=== PATIENT | female | born 1975 | race Caucasian/White ===

== ENCOUNTER 2016-10-19 12:21 | Emergency (ER) | payer OTHER ==
[~2016-10-19] VITALS: Ht 157.5 cm; Wt 95.0 kg
[~2016-10-19 12:21] MED LIST: AUGM875T PO; BUSP10TA PO; IBUP800T23 PO; LEVO.075 PO; ZOLO50TA PO
[2016-10-19 12:24] VITALS: BP 147/68; PULSE 78; RESP 17; TEMP 98; O2SAT 96
--- NOTE | 2016-10-19 12:36 | PD ---
HPI Chief Complaint: Cold / Flu Symptoms Time Seen by Provider: 12:28 Travel History International Travel<30 days: No Contact w/Intl Traveler<30days: No Traveled to known affect area: No History of Present Illness HPI 40-year-old female who reports a history of lupus, hypothyroidism, depression and mild asthma. She presents here for evaluation of cough, congestion, sore throat. Symptoms started 1 week ago. The cough is productive with green sputum production. She does also endorse some wheezing, particularly at night. She is not using any medication for symptom relief. No recent travel, no recent sick contacts. No fevers or chills. She has no other complaints at this time. PFSH Past Medical History Autoimmune Disease: Yes (LUPUS) Heart Rhythm Problems: No Cancer: No Cardiac Catheterization: No Cardiovascular Problems: Yes (HEART MURMUR) High Cholesterol: No Congestive Heart Failure: No Diabetes: No Diminished Hearing: No Endocrine: Yes GERD: Yes Genitourinary: No Hepatitis: No Hiatal Hernia: No Hypertension: No Immune Disorder: Yes (LUPUS) Musculoskeletal: Yes (HX OF COSTOCHONDRITIS) Neurologic: No Psychiatric: Yes (ANXIETY AND PANIC ATTACKS. NO MEDS USED) Reproductive: No Respiratory: Yes (HX OF ASTHMA) Immunizations Current: Yes Thyroid Disease: Yes (HYPOTHYROID) ?: Not LMP: 09/2016 Past Surgical History Abdominal Surgery: Yes (C- SECTION X 2;) Body Medical Devices: N/A Cardiac Surgery: No Section: Yes (X2) Coronary Artery Bypass Graft: No Ear Surgery: No Endocrine Surgery: No Eye Surgery: No Genitourinary Surgery: No Gynecologic Surgery: Yes ( X2) Joint Replacement: No Oral Surgery: Yes (CROWNS) Pacemaker: No Thoracic Surgery: No Social History Alcohol Use: Yes (SOCIALLY) Tobacco Use: No Substance Use: No Allergies-Medications (Allergen,Severity, Reaction): Coded Allergies: Penicillin (Verified Allergy, Severe, RASH, 10/19/16) Reported Meds & Prescriptions Reported Meds & Active Scripts Active Tessalon Perles (Benzonatate) 100 Mg Cap 100 Mg PO TID PRN Proair Hfa 8.5 GM Inh (Albuterol Sulfate) 90 Mcg/Act Aer 2 Puff INH Q4-6H PRN 108 mcg/actuation Prednisone 20 Mg Tab 20 Mg PO BID 5 Days Buspirone (Buspirone HCl) 10 Mg Tab 20 Mg PO BID Zoloft (Sertraline HCl) 50 Mg Tab 50 Mg PO DAILY Augmentin (Amoxicillin-Clavulanate) 875-125 mg Tab 875 Mg PO BID not for use in CrCl <30 ml/min. Reported Synthroid (Levothyroxine Sodium) 75 Mcg Tab 75 Mcg PO DAILY Ibuprofen 800 Mg Tab 800 Mg PO TID Review of Systems Except as stated in HPI: all other systems reviewed are Neg Physical Exam Narrative GENERAL: Well-developed well-nourished female in no acute distress SKIN: Warm and dry. HEAD: Atraumatic. Normocephalic. EYES: Pupils equal and round. No scleral icterus. No injection or drainage. ENT: No nasal bleeding or discharge. Mucous membranes pink and moist. No oropharyngeal erythema or exudate. Tympanic membranes revealed normal anatomical landmarks without erythema or air fluid level. NECK: Trachea midline. No JVD. No lymphadenopathy. CARDIOVASCULAR: Regular rate and rhythm. No murmur appreciated. RESPIRATORY: No accessory muscle use. Clear to auscultation. Breath sounds equal bilaterally. No crackles no wheezing or rhonchi Data Data Last Documented VS Vital Signs Date Time Temp Pulse Resp B/P Pulse Ox O2 Delivery O2 Flow Rate FiO2 10/19/16 12:24 98.0 78 17 147/68 96 Orders Chest, Pa & Lat (10/19/16 ) [facility] Medical Decision Making Medical Screen Exam Complete: Yes Emergency Medical Condition: Yes Medical Record Reviewed: Yes Differential Diagnosis Bronchitis, sinusitis, pneumonia, influenza, reactive airway disease, asthma exacerbation Narrative Course 40-year-old female with 1 week of cough, congestion, sore throat, wheezing at night. Physical examination currently is reassuring. She has no fever, tachycardia, tachypnea, hypoxia, wheezing on examination. She appears well. She is concerned that she may have pneumonia which she has had in the past. Therefore Plan is for chest x-ray. Chest x-ray is negative for pneumonia. The patient appears to have a viral bronchitis. She will be treated with bronchodilators, prednisone, Tessalon. Diagnosis Primary Impression: Bronchitis Additional Instructions: Medication as prescribed. Cover mouth when coughing. Stay well hydrated and well-nourished. Return for any emergent medical conditions. Med/Other Pt SpecificInfo: Prescription(s) given Scripts Benzonatate (Tessalon Perles)100 Mg [id number] Mg PO TID PRN (COUGH) #30 CAP Ref 0 Prov:Umair Zavala MD 10/19/16 Albuterol 8.5 GM Inh (Proair Hfa 8.5 GM Inh)90 Mcg/Act Aer2 Puff INH Q4-6H PRN ( SHORTNESS OF BREATH) #1 INHALER Ref 0 108 mcg/actuation Prov:Umair Zavala MD 10/19/16 Prednisone 20 Mg Tab20 Mg PO BID 5 Days Ref 0 Prov:Umair Zavala MD 10/19/16 Disposition: 01 DISCHARGE HOME Condition: Stable Clement Crespo Oct 19, 2016 12:36
[2016-10-19] MEDS ORDERED: ALBUAER3 INH (12:39)
[2016-10-19] MEDS ORDERED: PRED20 PO (12:39)
[2016-10-19] MEDS ORDERED: BENZ100 PO (12:39)
--- NOTE | 2016-10-19 13:08 | RADRPT ---
EXAM DATE/TIME: 10/19/2016 13:03 [facility] COMPARISON: CHEST PA & LAT, September 02, 2014, 12:19. INDICATIONS : Congestion, wheezing, short of breath. MEDICAL HISTORY : None. SURGICAL HISTORY : None. ENCOUNTER: Initial ACUITY: 1 week PAIN SCORE: 3/10 LOCATION: Bilateral chest FINDINGS: PA and lateral views of the chest demonstrate the lungs to be symmetrically aerated without evidence of mass, infiltrate or effusion. The cardiomediastinal contours are unremarkable. Osseous structure s are intact. CONCLUSION: Normal examination. Umair Pompa MD on October 19, 2016 at 13:07 Board Certified Radiologist. This report was verified electronically.
[2016-11-30] MEDS ORDERED: CURCPOW (17:09)
[2016-11-30] MEDS ORDERED: OMEG100010 (17:09)
[2016-11-30] MEDS ORDERED: CHOL50006 (17:09)
[2016-12-31] MEDS ORDERED: ZOLO50TA PO (11:15)
[2017-02-11] MEDS ORDERED: BUSP10TA PO (09:34)
== END 2016-10-19 13:11 | disposition home or self-care (01) ==
LOC: NETRI 12:21
DX: J40 Bronchitis, not specified as acute or chronic (principal); J02.9 Acute pharyngitis, unspecified; R06.2 Wheezing; M32.9 Systemic lupus erythematosus, unspecified
CPT/HCPCS: 71020; 99283

== ENCOUNTER 2016-12-14 20:43 | Emergency (ER) | payer BC, OTHER ==
[~2016-12-14] VITALS: Ht 170.2 cm; Wt 99.0 kg
[~2016-12-14 20:43] MED LIST changes: +ALBUAER3 INH; -AUGM875T PO; +CHOL50006; +CURCPOW; +OMEG100010
[2016-12-14 20:45] VITALS: BP 141/88; PULSE 74; RESP 16; TEMP 98.4; O2SAT 100
[2016-12-14] MEDS ORDERED: DICL75TA PO (21:06)
[2016-12-14] MEDS ORDERED: ROBA750T PO (21:06)
--- NOTE | 2016-12-14 21:12 | PD ---
HPI Chief Complaint: Back/ Neck Pain or Injury Time Seen by Provider: 21:07 Travel History International Travel<30 days: No Contact w/Intl Traveler<30days: No Traveled to known affect area: No History of Present Illness HPI 40-year-old white female presents to emergency Department with complaints of neck and upper back pain after a slip and fall at home. She states that this occurred a few days ago. She had tripped over her daughter's bed falling flat onto her back. She did not hit her head. There was no loss of consciousness. She denies any focal numbness, tingling or weakness. No acute bowel or bladder changes. She states that she's developed increasing stiffness and pain worse with movement of the head. She states the pain radiates from her base of her head down into her neck and upper back. She has some relief with remaining still but worse with activity. Denies any recent illness. Denies PFSH Past Medical History Narrative Medical Lupus, anxiety, depression, hypothyroidism Autoimmune Disease: Yes (LUPUS) Heart Rhythm Problems: No Cancer: No Cardiac Catheterization: No Cardiovascular Problems: Yes (HEART MURMUR) High Cholesterol: No Congestive Heart Failure: No Diabetes: No Diminished Hearing: No Endocrine: Yes GERD: Yes Genitourinary: No Hepatitis: No Hiatal Hernia: No Hypertension: No Immune Disorder: Yes (LUPUS) Musculoskeletal: Yes (HX OF COSTOCHONDRITIS) Neurologic: No Psychiatric: Yes (ANXIETY AND PANIC ATTACKS. NO MEDS USED) Reproductive: No Respiratory: Yes (HX OF ASTHMA) Immunizations Current: Yes Thyroid Disease: Yes (HYPOTHYROID) Past Surgical History Narrative Surgical C-sections, left carpal tunnel release Abdominal Surgery: Yes (C- SECTION X 2;) Body Medical Devices: N/A Cardiac Surgery: No Section: Yes (X2) Coronary Artery Bypass Graft: No Ear Surgery: No Endocrine Surgery: No Eye Surgery: No Genitourinary Surgery: No Gynecologic Surgery: Yes ( X2) Joint Replacement: No Oral Surgery: Yes (CROWNS) Pacemaker: No Thoracic Surgery: No Social History Alcohol Use: Yes (SOCIALLY) Tobacco Use: No Substance Use: No Allergies-Medications (Allergen,Severity, Reaction): Coded Allergies: Penicillin (Verified Allergy, Severe, RASH, 12/14/16) Reported Meds & Prescriptions Reported Meds & Active Scripts Active Robaxin (Methocarbamol) 750 Mg Tab 1,500 Mg PO TID [address] (Diclofenac Sodium) 75 Mg Tabdr 75 Mg PO BID Proair Hfa 8.5 GM Inh (Albuterol Sulfate) 90 Mcg/Act Aer 2 Puff INH Q4-6H PRN 108 mcg/actuation Buspirone (Buspirone HCl) 10 Mg Tab 20 Mg PO BID Zoloft (Sertraline HCl) 50 Mg Tab 50 Mg PO DAILY Reported [place] 3 1000 mg ([place]-3 Fatty Acids) 1 Cap Cap Curcumin (Turmeric (Curcuma Longa) (Bulk) 1 Pow Pow Vitamin D (Cholecalciferol) 5,000 Unit Tab Synthroid (Levothyroxine Sodium) 75 Mcg Tab 75 Mcg PO DAILY Ibuprofen 800 Mg Tab 800 Mg PO TID Review of Systems Except as stated in HPI: all other systems reviewed are Neg Physical Exam Narrative GENERAL: Well-developed, well-nourished in no apparent distress. Nontoxic appearing. HEAD: Normocephalic, atraumatic. EYES: Pupils equal round and reactive. Extraocular motions intact. No scleral icterus. No injection or drainage. ENT: Nose clear. Throat without erythema, tonsillar hypertrophy or exudate. Uvula midline. Airway patent. NECK: Trachea midline. Supple, paraspinal muscle tenderness but no central bony tenderness., patient moves head slowly due to pain. She has slightly limited range of motion.. Mild spasm. CARDIOVASCULAR: Regular rate and rhythm without murmurs, gallops, or rubs. RESPIRATORY: Clear to auscultation. Breath sounds equal bilaterally. No wheezes , rales, or rhonchi. GASTROINTESTINAL: Abdomen soft, non-tender, nondistended. No hepato-splenomegaly , or palpable masses. No guarding. EXTREMITIES: No clubbing, cyanosis, or edema. No joint tenderness. BACK: No central bony tenderness. Without deformity. No flank tenderness. Patient complains of myofascial tenderness between the scapulas bilaterally. She has parathoracic muscle tenderness with mild spasm. She has no pain in the lower lumbar spine. Full range of motion. Neurovascularly intact distally. No saddle anesthesia. NEUROLOGICAL: Awake, alert and oriented x 3 .Cranial nerves grossly intact. Motor and sensory grossly within normal limits. Normal speech. Data Data Last Documented VS Vital Signs Date Time Temp Pulse Resp B/P Pulse Ox O2 Delivery O2 Flow Rate FiO2 12/14/16 20:45 98.4 74 16 141/88 100 MDM Medical Decision Making Medical Screen Exam Complete: Yes Emergency Medical Condition: Yes Medical Record Reviewed: Yes Differential Diagnosis MDM: High Differential diagnoses: Fracture, sprain, strain, dislocation, contusion, neurovascular injury Narrative Course Patient's exam is reassuring. I do not believe that imaging is indicated at this time. The patient will be treated with muscle relaxer and NSAID. This is acute cervical and thoracic strain status post fall Diagnosis Primary Impression: acute cervical and thoracic strain status post fall Patient Instructions: General Instructions Additional Instructions: Rest. Ice or heat whichever seems to help her pain the past. Robaxin and Voltaren. Follow-up with a primary care doctor in one week. Return to the ER for emergencies. Med/Other Pt SpecificInfo: Prescription(s) given Scripts Methocarbamol (Robaxin)750 Mg Tab1,500 Mg PO TID 7 Days Prov:Wei Alarcon MD 12/14/[address] 75 Mg Tabdr75 Mg PO BID #20 TAB Prov:Wei Alarcon MD 12/14/16 Disposition: 01 DISCHARGE HOME Condition: Stable Mohamud aCrter Dec 14, 2016 21:12
[2016-12-31] MEDS ORDERED: ZOLO50TA PO (11:15)
[2017-02-11] MEDS ORDERED: BUSP10TA PO (09:34)
== END 2016-12-14 21:32 | disposition home or self-care (01) ==
LOC: NEPK 20:43
DX: S16.1XXA Strain of muscle, fascia and tendon at neck level, initial encounter (principal); S29.012A Strain of muscle and tendon of back wall of thorax, initial encounter; W01.0XXA Fall on same level from slipping, tripping and stumbling without subsequent striking against object, initial encounter; Y93.89 Activity, other specified; Y92.003 Bedroom of unspecified non-institutional (private) residence as the place of occurrence of the external cause
CPT/HCPCS: 99282

== ENCOUNTER 2016-12-26 23:12 | Emergency (ER) | payer BC ==
[~2016-12-26] VITALS: Ht 157.5 cm; Wt 95.9 kg
[~2016-12-26 23:12] MED LIST changes: -CHOL50006; +DICL75TA PO; +ROBA750T PO
[2016-12-27 00:01] VITALS: BP 122/87; PULSE 71; RESP 14; TEMP 98; O2SAT 97
[2016-12-27] MEDS ORDERED: PROPARACAINE HCL 0.5% OPHT SOLN 15 ML BTL EACH EYE ONE (00:45)
[2016-12-27] MEDS ORDERED: CLINDAMYCIN 150 MG CAP PO ONE (01:15)
[2016-12-27] MEDS ORDERED: ERYTHROMYCIN 0.5% OPTH OINT 3.5 GM TUBO RIGHT EYE ONE (01:15)
[2016-12-27] MEDS ORDERED: ERYTOIN10 RIGHT EYE (01:19)
[2016-12-27] MEDS ORDERED: CLIN1CAP6 PO (01:19)
--- NOTE | 2016-12-27 01:19 | PD ---
HPI Chief Complaint: Cold / Flu Symptoms Time Seen by Provider: 00:23 Travel History International Travel<30 days: No Contact w/Intl Traveler<30days: No Traveled to known affect area: No History of Present Illness HPI 41-year-old woman presents to the emergency department complaining of increased sinus pressure over the past 3 days, cough productive of thick phlegm, now with right eye irritation and inflammation redness purulent drainage and fullness. She has pain behind the eye, and fullness around the eye. No fevers or chills. She is a history of lupus but is not on any medication for now. She otherwise has been feeling generally well and healthy. History Past Medical History Narrative Medical Lupus Hypothyroidism Influenza Vaccination: No LMP: 12/17/16 : 2 Para: 2 Social History Alcohol Use: Yes (SOCIALLY) Tobacco Use: No Allergies-Medications (Allergen,Severity, Reaction): Coded Allergies: Penicillin (Verified Allergy, Severe, RASH, 12/27/16) Reported Meds & Prescriptions Reported Meds & Active Scripts Active Proair Hfa 8.5 GM Inh (Albuterol Sulfate) 90 Mcg/Act Aer 2 Puff INH Q4-6H PRN 108 mcg/actuation Buspirone (Buspirone HCl) 10 Mg Tab 20 Mg PO BID Zoloft (Sertraline HCl) 50 Mg Tab 50 Mg PO DAILY Reported Synthroid (Levothyroxine Sodium) 75 Mcg Tab 75 Mcg PO DAILY Review of Systems Except as stated in HPI: all other systems reviewed are Neg Physical Exam Narrative GENERAL: Well-appearing 41-year-old woman, no acute distress. SKIN: Focused skin assessment warm/dry. HEAD: Atraumatic. Normocephalic. EYES: Right eye is matted shut with purulent drainage, there is erythema and injection of the eye itself. There is a little bit of photophobia but no consensual photophobia. I don't see any hyphema. Tineo lamp exam was negative for any abnormal areas of uptake. Intraocular pressures were about 17-20 in the right, 13 in the left. ENT: No nasal bleeding or discharge. Mucous membranes pink and moist. TMs normal. Throat normal. NECK: Trachea midline. No JVD. No meningismus. CARDIOVASCULAR: Regular rate and rhythm. No murmur appreciated. RESPIRATORY: No accessory muscle use. Clear to auscultation. Breath sounds equal bilaterally. GASTROINTESTINAL: Abdomen soft, non-tender, nondistended. Hepatic and splenic margins not palpable. MUSCULOSKELETAL: No obvious deformities. No clubbing. No cyanosis. No edema. NEUROLOGICAL: Awake and alert. No obvious cranial nerve deficits. Motor grossly within normal limits. Normal speech. PSYCHIATRIC: Appropriate mood and affect; insight and judgment normal. Data Data Last Documented VS Vital Signs Date Time Temp Pulse Resp B/P Pulse Ox O2 Delivery O2 Flow Rate FiO2 12/27/16 00:01 98.0 71 14 122/87 97 Orders Proparacaine 0.5% Opth Soln (Alcaine 0.5 (12/27/16 00:45) Erythromycin 0.5% Opth Oint (Ilotycin 0. (12/27/16 01:15) Clindamycin (Cleocin) (12/27/16 01:15) [facility] Medical Decision Making Medical Screen Exam Complete: Yes Emergency Medical Condition: Yes Differential Diagnosis Sinusitis, orbital cellulitis, retro-orbital cellulitis, dural vein thrombosis, iritis or anterior uveitis, other Narrative Course Medical decision-making 41-year-old woman with sinus pressure and conjunctivitis symptoms. She is a little bit more photophobia and pain in the abdomen or expected for straight for conjunctivitis. Don't see any other evidence of iritis or more sinister eye disease. I don't think she has retro-orbital cellulitis. Recommend oral antibiotics, antibiotic ointment, and return for any worsening symptoms. She is agreeable. Diagnosis Primary Impression: Sinusitis Additional Impression: Conjunctivitis Additional Instructions: Continue clindamycin as prescribed for sinusitis. Continue with him eyes normal as prescribed first conjunctivitis. Return the emergency department for any worsening eye pain, swelling, fevers, or any other new or worsening symptoms. Med/Other Pt SpecificInfo: Prescription(s) given Scripts Erythromycin Opth Oint 5 Mg/Gm Oint1 Applic RIGHT EYE QID #1 TUBE Prov:Umair Zavala MD 12/27/16 Clindamycin 300 Mg Ihl198 Mg PO Q6H 10 Days Prov:Umair Zavala MD 12/27/16 Disposition: 01 DISCHARGE HOME Condition: Stable Umair Zavala MD December 27, 2016 01:19
[2016-12-31] MEDS ORDERED: ZOLO50TA PO (11:15)
[2017-02-11] MEDS ORDERED: BUSP10TA PO (09:34)
== END 2016-12-27 01:36 | disposition home or self-care (01) ==
LOC: PHED 23:12
DX: H10.9 Unspecified conjunctivitis (principal); J32.9 Chronic sinusitis, unspecified; M32.9 Systemic lupus erythematosus, unspecified; E03.9 Hypothyroidism, unspecified
CPT/HCPCS: 99283

== ENCOUNTER 2017-01-17 23:26 | Emergency (ER) | payer BC ==
[~2017-01-17] VITALS: Ht 157.5 cm; Wt 97.7 kg
[~2017-01-17 23:26] MED LIST changes: +CLIN1CAP6 PO; -CURCPOW; -DICL75TA PO; +ERYTOIN10 RIGHT EYE; -IBUP800T23 PO; -OMEG100010; -ROBA750T PO
[2017-01-17 23:38] VITALS: BP 143/88; PULSE 77; RESP 14; TEMP 98.3; O2SAT 98
[2017-01-17 23:52] VITALS: BP 143/88; PULSE 77; RESP 14; TEMP 98.3; O2SAT 98
[2017-01-17 23:57] VITALS: BP 132/79; PULSE 80; RESP 16; O2SAT 95
--- NOTE | 2017-01-17 23:59 | PD ---
HPI Chief Complaint: Cold / Flu Symptoms Time Seen by Provider: 23:55 Travel History International Travel<30 days: No Contact w/Intl Traveler<30days: No Traveled to known affect area: No History of Present Illness HPI The patient is a 41-year-old female who presents emergency department for cough and cold symptoms. The patient states she recently moved into an apartment that she thinks has mold. The patient complains of chest tightness, wheezing, and it productive cough producing occasional white to green sputum. The patient was diagnosed with sinusitis several weeks ago, was placed on doxycycline, however, had subsequent nausea and vomiting secondary to the doxycycline. The patient's antibiotics were changed to Zithromax and her symptoms improved. However, the patient is now having recurrent symptoms including Dr. cough, wheezing, and chest tightness. She denies any fever, chills, or sweats. The patient does have a history of lupus, is not currently on her Plaquenil. Symptoms are moderate, possibly exacerbated by mold, and there are no current alleviating factors. PFSH Past Medical History Asthma: Yes Autoimmune Disease: Yes (LUPUS) Anxiety: Yes Depression: Yes Heart Rhythm Problems: No Cancer: No Cardiac Catheterization: No Cardiovascular Problems: Yes (HEART MURMUR) High Cholesterol: No Congestive Heart Failure: No Diabetes: No Diminished Hearing: No Endocrine: Yes GERD: Yes Genitourinary: No Hepatitis: No Hiatal Hernia: No Hypertension: No Immune Disorder: Yes (LUPUS) Musculoskeletal: Yes (HX OF COSTOCHONDRITIS) Neurologic: No Psychiatric: Yes (ANXIETY AND PANIC ATTACKS. NO MEDS USED) Reproductive: No Respiratory: Yes (HX OF ASTHMA) Immunizations Current: Yes Thyroid Disease: Yes (HYPOTHYROID) ?: Not : 2 Para: 2 Past Surgical History Abdominal Surgery: Yes Body Medical Devices: N/A Cardiac Surgery: No Section: Yes (X2) Coronary Artery Bypass Graft: No Ear Surgery: No Endocrine Surgery: No Eye Surgery: No Genitourinary Surgery: No Gynecologic Surgery: Yes ( X2) Joint Replacement: No Oral Surgery: Yes (CROWNS) Pacemaker: No Thoracic Surgery: No Social History Alcohol Use: Yes (SOCIALLY) Tobacco Use: No Substance Use: No Allergies-Medications (Allergen,Severity, Reaction): Coded Allergies: Penicillin (Verified Allergy, Severe, RASH, 5/30/17) Reported Meds & Prescriptions Reported Meds & Active Scripts Active Zoloft (Sertraline HCl) 50 Mg Tab 50 Mg PO DAILY Erythromycin Opth Oint 5 Mg/Gm Oint 1 Applic RIGHT EYE QID Clindamycin (Clindamycin HCl) 300 Mg Cap 300 Mg PO Q6H 10 Days Proair Hfa 8.5 GM Inh (Albuterol Sulfate) 90 Mcg/Act Aer 2 Puff INH Q4-6H PRN 108 mcg/actuation Buspirone (Buspirone HCl) 10 Mg Tab 20 Mg PO BID Reported Synthroid (Levothyroxine Sodium) 75 Mcg Tab 75 Mcg PO DAILY Review of Systems Except as stated in HPI: all other systems reviewed are Neg General / Constitutional: No: Fever HENT: No: Lightheadedness, Sore Throat Cardiovascular: No: Chest Pain or Discomfort Respiratory: Positive: Cough, Wheezing Gastrointestinal: No: Nausea, Vomiting Musculoskeletal: No: Myalgias, Arthralgias Physical Exam Narrative GENERAL: Awake, alert, pleasant 41-year-old female who appears her stated age is in no acute respiratory distress. SKIN: Focused skin assessment warm/dry. HEAD: Atraumatic. Normocephalic. EYES: Pupils equal and round. No scleral icterus. No injection or drainage. ENT: No nasal bleeding or discharge. Mucous membranes pink and moist. Cobblestoning in posterior oropharynx without any exudate. NECK: Trachea midline. No JVD. CARDIOVASCULAR: Regular rate and rhythm. No murmur appreciated. RESPIRATORY: No accessory muscle use. Scattered wheezes. MUSCULOSKELETAL: No obvious deformities. No clubbing. No cyanosis. No edema. NEUROLOGICAL: Awake and alert. No obvious cranial nerve deficits. Motor grossly within normal limits. Normal speech. PSYCHIATRIC: Appropriate mood and affect; insight and judgment normal. Data Data Last Documented VS Vital Signs Date Time Temp Pulse Resp B/P Pulse Ox O2 Delivery O2 Flow Rate FiO2 01/17/17 23:57 16 95 Room Air 01/17/17 23:57 80 132/79 01/17/17 23:52 98.3 Orders Ecg Monitoring (01/17/17 23:56) Oximetry (01/17/17 23:56) Albuterol-Ipratropium Neb (Duoneb Neb) (01/18/17 00:00) Lidocaine Pf 4% Neb (Lidocaine Pf 4% Neb (01/18/17 00:00) Prednisone (Deltasone) (01/18/17 00:00) MDM Medical Decision Making Medical Screen Exam Complete: Yes Emergency Medical Condition: Yes Medical Record Reviewed: Yes Differential Diagnosis Differential diagnosis includes postnasal drainage, bronchitis, reactive airway disease, pneumonia, URI, viral syndrome, allergic reaction. Narrative Course The patient was administered prednisone 50 mg orally and duo nebs 2 with respiratory lidocaine. The patient was reevaluated at 12:45 AM, her symptoms had significantly improved. The patient most likely has an allergic versus viral bronchitis, will be placed on prednisone and an albuterol inhaler. The patient finished Zithromax 2 weeks ago for sinusitis, I doubt mycoplasma pneumonia. 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 Patient is stable for outpatient follow-up. Diagnosis Primary Impression: Bronchitis Patient Instructions: General Instructions Additional Instructions: Medications as directed. Follow-up with her primary physician. Return if symptoms worsen or progress. Use albuterol inhaler every 4-6 hours while awake for the next 4-5 days. Med/Other Pt SpecificInfo: Prescription(s) given Scripts Albuterol 18 GM Inh (Ventolin Hfa 18 GM Inh)90 Mcg/Act Aer2 Puff INH Q6H PRN ( SHORTNESS OF BREATH) #1 INHALER Ref 0 Prov:Godwin Rodrigues MD 01/18/17 Prednisone (Deltasone)20 Mg Tab40 Mg PO DAILY 4 Days Ref 0 Prov:Godwin Rodrigues MD 01/18/17 Disposition: 01 DISCHARGE HOME Condition: Stable Godwin Rodrigues MD January 17, 2017 23:59
[2017-01-18] MEDS ORDERED: predniSONE 50 MG TAB PO ONE
[2017-01-18] MEDS ORDERED: RESP: LIDOCAINE HCL 4% PF 5 ML NEB NEB ONE
[2017-01-18] MEDS: RESP: ALBUTEROL 2.5 MG/IPRATROPIUM 0.5 MG NEB (SCH) INH ×2 (00:12→00:20)
[2017-01-18] MEDS ORDERED: VENTAER INH (00:55)
[2017-01-18] MEDS ORDERED: PRED-503 PO (00:55)
[2017-02-11] MEDS ORDERED: BUSP10TA PO (09:34)
== END 2017-01-18 01:07 | disposition home or self-care (01) ==
LOC: PHED 23:26
DX: J40 Bronchitis, not specified as acute or chronic (principal); J45.909 Unspecified asthma, uncomplicated; M32.9 Systemic lupus erythematosus, unspecified; F41.9 Anxiety disorder, unspecified; F32.9 Major depressive disorder, single episode, unspecified; K21.9 Gastro-esophageal reflux disease without esophagitis; E03.9 Hypothyroidism, unspecified; Z79.899 Other long term (current) drug therapy; Z88.0 Allergy status to penicillin
CPT/HCPCS: 94640; 94664; 99284; J7512

== ENCOUNTER 2017-06-11 22:42 | Emergency (ER) | payer BC ==
[~2017-06-11] VITALS: Ht 157.5 cm; Wt 96.6 kg
[~2017-06-11 22:42] MED LIST changes: +PRED-503 PO; +VENTAER INH
[2017-06-11 22:56] VITALS: BP 150/81; PULSE 93; RESP 18; TEMP 99.8; O2SAT 98
[2017-06-12 00:28] VITALS: BP 150/81; PULSE 93; RESP 18; TEMP 99.8; O2SAT 98
[2017-06-12] MEDS ORDERED: SERT-132 PO (00:50)
[2017-06-12] MEDS ORDERED: LEVO88TA2 PO (00:50)
--- NOTE | 2017-06-12 01:56 | PD ---
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 She has nausea without vomiting. On the 2nd of this month Dr. Buck did an ablation of the uterine endometrium for vaginal bleeding. Apparently this was a rather extensive ablation. The patient has noted in the last week some vaginal bleeding which is been progressive and she has had some midline pelvic pain in the last day or 2. She does not have a foul smelling vaginal discharge but she does have some vaginal discharge. PFSH Past Medical History Asthma: Yes Autoimmune Disease: Yes (LUPUS) Anxiety: Yes Depression: Yes Heart Rhythm Problems: No Cancer: No Cardiac Catheterization: No Cardiovascular Problems: Yes (HEART MURMUR) High Cholesterol: No Congestive Heart Failure: No Diabetes: No Diminished Hearing: No Endocrine: Yes Gastrointestinal Disorders: No GERD: Yes Genitourinary: No Hepatitis: No Hiatal Hernia: No Heparin Induced Thrombocytopen: No Hypertension: No Immune Disorder: Yes (LUPUS) Medical other: Yes (DIVERTICULOSIS) Musculoskeletal: Yes (HX OF COSTOCHONDRITIS) Neurologic: No Psychiatric: Yes (ANXIETY AND PANIC ATTACKS. NO MEDS USED) Reproductive: No Respiratory: Yes (HX OF ASTHMA) Immunizations Current: Yes Thyroid Disease: Yes (HYPOTHYROID) Influenza Vaccination: No ?: Not : 2 Para: 2 Past Surgical History Abdominal Surgery: Yes Body Medical Devices: N/A Cardiac Surgery: No Section: Yes (X2) Coronary Artery Bypass Graft: No Ear Surgery: No Endocrine Surgery: No Eye Surgery: No Genitourinary Surgery: No Gynecologic Surgery: Yes (C SECTIONX2, UTERINE ABLATION) Joint Replacement: No Neurologic Surgery: No Oral Surgery: Yes (CROWNS) Pacemaker: No Thoracic Surgery: No Other Surgery: Yes Social History Alcohol Use: Yes (Socially) Tobacco Use: No Substance Use: No Allergies-Medications (Allergen,Severity, Reaction): Coded Allergies: penicillin G (Verified Allergy, Severe, RASH, 06/12/17) Reported Meds & Prescriptions Reported Meds & Active Scripts Active Flagyl (Metronidazole) 500 Mg Tab 500 Mg PO TID 10 Days Zofran (Ondansetron HCl) 8 Mg Tab 8 Mg PO TID Doxycycline Hyclate 100 Mg Cap 100 Mg PO BID Reported Levothyroxine (Levothyroxine Sodium) 88 Mcg Tab 88 Mcg PO DAILY Sertraline (Sertraline HCl) 50 Mg Tab 75 Mg PO DAILY Review of Systems Except as stated in HPI: all other systems reviewed are Neg Physical Exam Narrative GENERAL: The patient is alert, oriented 3 and slight apparent distress with her midline pelvic discomfort. Her vital signs show temperature 99.8 with blood pressure 150/81 and heart rate of 93. The rest the vital signs are normal. SKIN: Focused skin assessment warm/dry. HEAD: Atraumatic. Normocephalic. EYES: Pupils equal and round. No scleral icterus. No injection or drainage. ENT: No nasal bleeding or discharge. Mucous membranes pink and moist. NECK: Trachea midline. No JVD. CARDIOVASCULAR: Regular rate and rhythm. No murmur appreciated. RESPIRATORY: No accessory muscle use. Clear to auscultation. Breath sounds equal bilaterally. GASTROINTESTINAL: Abdomen soft, non-tender, nondistended. Hepatic and splenic margins not palpable. No guarding or rebound. The patient does not have any pelvic tenderness. MUSCULOSKELETAL: No obvious deformities. No clubbing. No cyanosis. No edema. NEUROLOGICAL: Awake and alert. No obvious cranial nerve deficits. Motor grossly within normal limits. Normal speech. PSYCHIATRIC: Appropriate mood and affect; insight and judgment normal. GENITOURINARY: Normal external genitalia without lesions or erythema. Vaginal vault with a tiny amount of blood and a slight [id number] slightly bloody drainage. Cervical os was closed with slightly bloody drainage. There is some slight cervical motion tenderness. Uterus slightly tender and nonenlarged. Bilateral adnexa nontender without masses. Data Data Last Documented VS Vital Signs Date Time Temp Pulse Resp B/P (MAP) Pulse Ox O2 Delivery O2 Flow Rate FiO2 06/12/17 03:15 06/12/17 02:58 98.6 88 14 97 Room Air Orders Orders Complete Blood Count With Diff (06/12/17 01:56) Basic Metabolic Panel (Bmp) (06/12/17 01:56) Gc And Chlamydia Pcr (06/12/17 01:56) Wet Prep Profile (06/12/17 01:56) Doxycycline (Vibratab) (06/12/17 02:15) Ceftriaxone Inj (Rocephin Inj) (06/12/17 02:15) Metronidazole (Flagyl) (06/12/17 03:15) Metronidazole (Flagyl) (06/12/17 03:15) Ondansetron Odt (Zofran Odt) (06/12/17 03:15) Labs Laboratory Tests Test 06/12/17 02:00 06/12/17 02:05 Clue Cells (Wet Prep) NONE SEEN Vaginal Trichomonas (Wet Prep) NONE SEEN Vaginal Yeast (Wet Prep) NONE SEEN White Blood Count 19.2 TH/MM3 Red Blood Count 4.54 MIL/MM3 Hemoglobin 13.1 GM/DL Hematocrit 38.6 % Mean Corpuscular Volume 84.9 FL Mean Corpuscular Hemoglobin 29.0 PG Mean Corpuscular Hemoglobin Concent 34.1 % Red Cell Distribution Width 12.6 % Platelet Count 307 TH/MM3 Mean Platelet Volume 8.0 FL Neutrophils (%) (Auto) 83.3 % Lymphocytes (%) (Auto) 8.7 % Monocytes (%) (Auto) 5.5 % Eosinophils (%) (Auto) 1.6 % Basophils (%) (Auto) 0.9 % Neutrophils # (Auto) 15.9 TH/MM3 Lymphocytes # (Auto) 1.7 TH/MM3 Monocytes # (Auto) 1.1 TH/MM3 Eosinophils # (Auto) 0.3 TH/MM3 Basophils # (Auto) 0.2 TH/MM3 CBC Comment AUTO DIFF Differential Comment AUTO DIFF CONFIRMED Blood Urea Nitrogen 12 MG/DL Creatinine 0.76 MG/DL Random Glucose 112 MG/DL Calcium Level 8.1 MG/DL Sodium Level 136 MEQ/L Potassium Level 3.6 MEQ/L Chloride Level 102 MEQ/L Carbon Dioxide Level 27.4 MEQ/L Anion Gap 7 MEQ/L Estimat Glomerular Filtration Rate 84 ML/MIN MDM Medical Decision Making Medical Screen Exam Complete: Yes Emergency Medical Condition: Yes Medical Record Reviewed: Yes Interpretation(s) The wet prep is negative for Trichomonas, yeast and clue cells. The basic metabolic profile shows a GFR of 84 and calcium 8.1 but is otherwise normal. The CBC shows a white count of 19,200 with 83% neutrophils but is otherwise normal. Differential Diagnosis PID, pelvic abscess-unlikely, cuff infection, expected drainage from uterine ablation, endometritis, bacterial vaginosis, yeast infection, Trichomonas vaginitis Narrative Course The patient does have some expected drainage from a rather extensive uterine ablation. However, the fever suggests some endometritis. The patient will be given a gram of Rocephin IV and doxycycline. She will need to follow-up with Dr. Buck, call Tuesday Diagnosis Primary Impression: Endometritis Additional Instructions: As we discussed, call Dr. Bah on Tuesday. Do not engage in sexual intercourse and the metronidazole is one tablet 3 times daily and the doxycycline is one tablet twice daily. Do not drink alcohol as this can cause a bad reaction with the metronidazole. Dr. Bah will be waiting for a call from you Tuesday to set up that appointment. Med/Other Pt SpecificInfo: Prescription(s) given Scripts Metronidazole (Flagyl) 500 Mg Tab 500 MG PO TID for Infection for 10 Days, TAB 0 Refills Prov: Donis Cheung MD 06/12/17 Ondansetron (Zofran) 8 Mg Tab 8 MG PO TID for Nausea/Vomiting, #21 TAB 0 Refills Prov: Donis Cheung MD 06/12/17 Doxycycline Hyclate (Doxycycline Hyclate) 100 Mg Cap 100 MG PO BID for Infection, #20 CAP 0 Refills Prov: Donis Cheung MD 06/12/17 Disposition: DISCHARGE HOME Condition: Stable Donis Cheung MD Jun 12, 2017 01:56
[2017-06-12] MEDS ORDERED: DOXYCYCLINE HYCLATE 100 MG TAB PO ONE (02:15)
[2017-06-12] MEDS ORDERED: cefTRIAXone INJ 1,000 MG in SODIUM CHLORIDE 0.9% INJ 100 ML IV ONE (02:15)
[2017-06-12 02:22] LABS: POTASSIUM 3.6 MEQ/L (3.5-5.1)
[2017-06-12 02:25] LABS: BICARBONATE 27.4 MEQ/L (21.0-32.0)
[2017-06-12] MEDS ORDERED: DOXY100C PO (02:28)
[2017-06-12 02:29] LABS: AUTOMATED NEUTROPHIL # 15.9 TH/MM3 (1.8-7.7); BASOPHIL # 0.2 TH/MM3 (0-0.2); BASOPHIL % 0.9 % (0.0-2.0); EOSINOPHIL # 0.3 TH/MM3 (0-0.4); EOSINOPHIL % 1.6 % (0.0-4.0); HEMATOCRIT 38.6 % (35.0-46.0); LYMPH % 8.7 % (9.0-44.0); LYMPHOCYTE # 1.7 TH/MM3 (1.0-4.8); MEAN CELL VOLUME 84.9 FL (80.0-100.0); MEAN CORPUSCULAR HGB CONC 34.1 % (32.0-36.0); MONO % 5.5 % (0.0-8.0); NEUT % 83.3 % (16.0-70.0); PLATELET COUNT 307 TH/MM3 (150-450); RED BLOOD COUNT 4.54 MIL/MM3 (4.00-5.30); RED CELL DISTRIBUTION WIDTH 12.6 % (11.6-17.2); WHITE BLOOD COUNT 19.2 TH/MM3 (4.0-11.0)
[2017-06-12 02:32] LABS: HEMO FLAGS AUTO DIFF
[2017-06-12 02:58] VITALS: BP 143/78; PULSE 88; RESP 14; TEMP 98.6; O2SAT 97
[2017-06-12 03:04] LABS: SCAN/DIFF AUTO DIFF CONFIRMED
[2017-06-12] MEDS ORDERED: ZOFR8TAB PO (03:12)
[2017-06-12] MEDS ORDERED: METR-1 PO (03:14)
[2017-06-12] MEDS ORDERED: metroNIDAZOLE 500 MG TAB PO ONE ×2 (03:15)
[2017-06-12] MEDS ORDERED: ONDANSETRON ODT 4 MG TAB PO ONE (03:15)
[2017-06-12 20:34] LABS: CHLAMYDIA PCR NOT DETECTED (NOT DETECT); NEISSERIA PCR NOT DETECTED (NOT DETECT)
[2017-06-12] MEDS ORDERED: NORC5TAB PO (22:01)
== END 2017-06-12 03:29 | disposition home or self-care (01) ==
LOC: PHED 22:42
DX: N71.9 Inflammatory disease of uterus, unspecified (principal); R11.0 Nausea; N89.8 Other specified noninflammatory disorders of vagina; R10.2 Pelvic and perineal pain; E03.9 Hypothyroidism, unspecified; Z98.890 Other specified postprocedural states; Z87.09 Personal history of other diseases of the respiratory system; Z86.59 Personal history of other mental and behavioral disorders; Z86.79 Personal history of other diseases of the circulatory system; Z87.19 Personal history of other diseases of the digestive system; Z86.2 Personal history of diseases of the blood and blood-forming organs and certain disorders involving the immune mechanism; Z87.39 Personal history of other diseases of the musculoskeletal system and connective tissue
CPT/HCPCS: 80048; 85025; 87210; 87491; 87591; 96365; 99284; J0696

== ENCOUNTER 2017-06-12 19:16 | Emergency (ER) | payer BC ==
[~2017-06-12] VITALS: Ht 157.5 cm; Wt 93.0 kg
[~2017-06-12 19:16] MED LIST changes: +DOXY100C PO; +LEVO88TA2 PO; +METR-1 PO; +SERT-132 PO; +ZOFR8TAB PO
[2017-06-12 19:19] VITALS: BP 141/85; PULSE 75; RESP 16; TEMP 98.1; O2SAT 98
[2017-06-12] MEDS ORDERED: SODIUM CHLOR 0.9% 1000 ML INJ 1,000 ML IV ONE (19:56)
--- NOTE | 2017-06-12 20:16 | PD ---
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 Patient is a G2, P2 that had an ablation of the uterine endometrium for vaginal bleeding done on May 23 of this month by Dr. Buck. According to previous notes, it was an extensive ablation. She followed up with Dr. Buck on Tuesday and was doing well. However, since then she started with generalized body aches, pelvic pain, fevers. Patient was seen in [facility] emergency department last night and was discharged home with prescription for doxycycline, Flagyl, Zofran for endometritis. She had lab work and pelvic exam completed at that time. Labs did show leukocytosis of 19.2. Wet prep was negative. GC and chlamydia are still pending. Patient was instructed to return if she has any worsening symptoms. She denies any fever since being seen last night. However, she started with worsening pelvic pain. Patient also reports history of lupus. She is not on any other medications other than the antibiotics prescribed to her last night. PFSH Past Medical History Asthma: Yes Autoimmune Disease: Yes (LUPUS) Anxiety: Yes Depression: Yes Heart Rhythm Problems: No Cancer: No Cardiac Catheterization: No Cardiovascular Problems: Yes (HEART MURMUR) High Cholesterol: No Congestive Heart Failure: No Diabetes: No Diminished Hearing: No Endocrine: Yes Gastrointestinal Disorders: No GERD: Yes Genitourinary: No Hepatitis: No Hiatal Hernia: No Heparin Induced Thrombocytopen: No Hypertension: No Immune Disorder: Yes (LUPUS) Medical other: Yes (DIVERTICULOSIS) Musculoskeletal: Yes (HX OF COSTOCHONDRITIS) Neurologic: No Psychiatric: Yes (ANXIETY AND PANIC ATTACKS. NO MEDS USED) Reproductive: No Respiratory: Yes Immunizations Current: Yes Thyroid Disease: Yes (HYPOTHYROID) ?: Not : 2 Para: 2 Past Surgical History Abdominal Surgery: Yes Body Medical Devices: N/A Cardiac Surgery: No Section: Yes (X2) Coronary Artery Bypass Graft: No Ear Surgery: No Endocrine Surgery: No Eye Surgery: No Genitourinary Surgery: No Gynecologic Surgery: Yes (UTERINE ABLATION) Joint Replacement: No Neurologic Surgery: No Oral Surgery: Yes (CROWNS) Pacemaker: No Thoracic Surgery: No Other Surgery: Yes Social History Alcohol Use: Yes (Socially) Tobacco Use: No Substance Use: No Allergies-Medications (Allergen,Severity, Reaction): Coded Allergies: penicillin G (Verified Allergy, Severe, RASH, 06/12/17) Reported Meds & Prescriptions Reported Meds & Active Scripts Active Flagyl (Metronidazole) 500 Mg Tab 500 Mg PO TID 10 Days Zofran (Ondansetron HCl) 8 Mg Tab 8 Mg PO TID Doxycycline Hyclate 100 Mg Cap 100 Mg PO BID Reported Levothyroxine (Levothyroxine Sodium) 88 Mcg Tab 88 Mcg PO DAILY Sertraline (Sertraline HCl) 50 Mg Tab 75 Mg PO DAILY Review of Systems Except as stated in HPI: all other systems reviewed are Neg Physical Exam Narrative GENERAL: Well-nourished, well-developed female patient, ambulatory. Afebrile. SKIN: Focused skin assessment warm/dry. HEAD: Normocephalic. Atraumatic EYES: No scleral icterus. No injection or drainage. NECK: Supple, trachea midline. No JVD or lymphadenopathy. CARDIOVASCULAR: Regular rate and rhythm without murmurs, gallops, or rubs. RESPIRATORY: Breath sounds equal bilaterally. No accessory muscle use. Lungs sounds are clear to auscultation. GASTROINTESTINAL: Abdomen soft and nondistended. Patient has pelvic tenderness to palpation. MUSCULOSKELETAL: No cyanosis, or edema. BACK: Nontender without obvious deformity. No CVA tenderness. Data Data Last Documented VS Vital Signs Date Time Temp Pulse Resp B/P (MAP) Pulse Ox O2 Delivery O2 Flow Rate FiO2 06/12/17 19:19 98.1 75 16 141/85 (103) 98 Room Air Orders Orders Complete Blood Count With Diff (06/12/17 19:56) Comprehensive Metabolic Panel (06/12/17 19:56) Urinalysis - C+S If Indicated (06/12/17 19:56) Us Pelvis Comp Senior Drupal Developer/Non-Preg (06/12/17 ) Iv Access Insert/Monitor (06/12/17 19:56) Sodium Chlor 0.9% 1000 Ml Inj (Ns 1000 M (06/12/17 19:56) Blood Culture (06/12/17 19:56) Lactic Acid Sepsis Protocol (06/12/17 19:56) Labs Laboratory Tests Test 06/12/17 20:25 [facility] Medical Decision Making Medical Screen Exam Complete: Yes Emergency Medical Condition: Yes Medical Record Reviewed: Yes Differential Diagnosis Endometritis ice versus sepsis versus UTI versus PID versus unlikely pelvic abscess Narrative Course 41-year-old female presents to the emergency department for worsening pelvic pain since being seen last night. CBC, CMP, UA, lactic acid, blood cultures 2 are ordered and pending. Pelvic ultrasound is ordered and pending. My attending physician, Dr. Valerio, will resume care and disposition of patient. Betzaida Domingo Jun 12, 2017 20:16
[2017-06-12 20:41] LABS: AMORPHOUS SEDIMENT, URINE RARE; BACTERIA, URINE RARE /hpf; BILIRUBIN, URINE NEG (NEG); BLOOD, URINE LARGE (NEG); GLUCOSE,URINE NEG (NEG); KETONE, URINE NEG (NEG); NITRITE,URINE NEG (NEG); PH, URINE 6.5 (5.0-8.5); SQUAMOUS EPITHELIAL CELL URINE 1 /hpf (0-5); URINE COLOR YELLOW (YELLW/STRAW); URINE LEUKOCYTE ESTERASE LARGE (NEG)
--- NOTE | 2017-06-12 21:14 | RADRPT ---
EXAM DATE/TIME: 06/12/2017 20:13 [facility] COMPARISON: No previous studies available for comparison. INDICATIONS : Pelvic pain. MEDICAL HISTORY : Hypothyroidism. Gastroesophageal reflux disease. Diverticulosis. Asthma. Depression. Anxiety. Glass es. SURGICAL HISTORY : section. Uterine ablation. Left hand surgery. Crowns. ENCOUNTER: Initial ACUITY: 2 weeks PAIN SCORE: 9/10 LOCATION: Bilateral pelvis MEASUREMENTS: UTERUS: 10.0 x 4.9 x 5.3 cm ENDOMETRIAL STRIPE: >20 mm RIGHT OVARY: cm Non visualized LEFT OVARY: 3.5 x 2.4 x 2.0 cm FINDINGS: Multiple cystic areas noted in the lower uterine segment and cervix. History of uterine ablation. End ometrium is thickened to greater than 2 cm with echogenic areas present. Trace fluid in the endometri al canal. Right ovary not visualized. Left ovary not well visualized but normal in size. No free flui d. CONCLUSION: Markedly thickened and heterogeneous endometrium with trace fluid. Reportedly there is recent history of uterine ablation. No adnexal mass or free fluid. Small nabothian cysts. Mohamud Bojorquez MD on June 12, 2017 at 21:10 Board Certified Radiologist. This report was verified electronically.
[2017-06-12 21:24] LABS: AUTOMATED NEUTROPHIL # 12.8 TH/MM3 (1.8-7.7); BASOPHIL # 0.1 TH/MM3 (0-0.2); BASOPHIL % 0.4 % (0.0-2.0); EOSINOPHIL # 0.4 TH/MM3 (0-0.4); EOSINOPHIL % 2.5 % (0.0-4.0); HEMATOCRIT 40.1 % (35.0-46.0); HEMOGLOBIN 13.5 GM/DL (11.6-15.3); LYMPH % 11.1 % (9.0-44.0); LYMPHOCYTE # 1.8 TH/MM3 (1.0-4.8); MEAN CELL VOLUME 87.9 FL (80.0-100.0); MEAN CORPUSCULAR HEMOGLOBIN 29.6 PG (27.0-34.0); MEAN CORPUSCULAR HGB CONC 33.6 % (32.0-36.0); MONO % 7.1 % (0.0-8.0); MONOCYTE # 1.2 TH/MM3 (0-0.9); NEUT % 78.9 % (16.0-70.0); PLATELET COUNT 273 TH/MM3 (150-450); RED BLOOD COUNT 4.56 MIL/MM3 (4.00-5.30); RED CELL DISTRIBUTION WIDTH 13.6 % (11.6-17.2); WHITE BLOOD COUNT 16.2 TH/MM3 (4.0-11.0)
[2017-06-12 21:36] LABS: ALT (GPT) 26 U/L (10-53)
[2017-06-12 21:38] LABS: ALKALINE PHOSPHATASE 84 U/L (45-117); TOTAL BILIRUBIN ADULT 0.7 MG/DL (0.2-1.0); TOTAL PROTEIN 7.5 GM/DL (6.4-8.2)
[2017-06-12 21:43] LABS: ALBUMIN 3.5 GM/DL (3.4-5.0); AST (GOT) 26 U/L (15-37); BICARBONATE 28.1 MEQ/L (21.0-32.0); BLOOD UREA NITROGEN 6 MG/DL (7-18); CALCIUM 8.9 MG/DL (8.5-10.1); CHLORIDE 102 MEQ/L (98-107); CREATININE 0.69 MG/DL (0.50-1.00); GLOMERULAR FILTRATION RATE 94 ML/MIN (>89); GLUCOSE,RANDOM 85 MG/DL (74-106); SODIUM (NA) 136 MEQ/L (136-145)
--- NOTE | 2017-06-12 21:45 | PD ---
Physical Exam Narrative Patient was seen by water quality assistant and signed out to ks Data Data Last Documented VS Vital Signs Date Time Temp Pulse Resp B/P (MAP) Pulse Ox O2 Delivery O2 Flow Rate FiO2 06/12/17 19:19 98.1 75 16 141/85 (103) 98 Room Air Orders Orders Complete Blood Count With Diff (06/12/17 19:56) Comprehensive Metabolic Panel (06/12/17 19:56) Urinalysis - C+S If Indicated (06/12/17 19:56) Iv Access Insert/Monitor (06/12/17 19:56) Sodium Chlor 0.9% 1000 Ml Inj (Ns 1000 M (06/12/17 19:56) Blood Culture (06/12/17 19:56) Lactic Acid Sepsis Protocol (06/12/17 19:56) Us Pelvis Comp W Transvaginal (06/12/17 ) Ceftriaxone Inj (Rocephin Inj) (06/12/17 22:00) Labs Laboratory Tests Test 06/12/17 20:25 06/12/17 21:00 Urine Color YELLOW Urine Turbidity HAZY Urine pH 6.5 Urine Specific [place] 1.014 Urine Protein NEG mg/dL Urine Glucose (UA) NEG mg/dL Urine Ketones NEG mg/dL Urine Occult Blood LARGE Urine Nitrite NEG Urine Bilirubin NEG Urine Urobilinogen LESS THAN 2.0 MG/DL Urine Leukocyte Esterase LARGE Urine RBC 49 /hpf Urine WBC 7 /hpf Urine Squamous Epithelial Cells 1 /hpf Urine Amorphous Sediment RARE Urine Bacteria RARE /hpf Microscopic Urinalysis Comment CULT NOT INDICATED White Blood Count 16.2 TH/MM3 Red Blood Count 4.56 MIL/MM3 Hemoglobin 13.5 GM/DL Hematocrit 40.1 % Mean Corpuscular Volume 87.9 FL Mean Corpuscular Hemoglobin 29.6 PG Mean Corpuscular Hemoglobin Concent 33.6 % Red Cell Distribution Width 13.6 % Platelet Count 273 TH/MM3 Mean Platelet Volume 8.0 FL Neutrophils (%) (Auto) 78.9 % Lymphocytes (%) (Auto) 11.1 % Monocytes (%) (Auto) 7.1 % Eosinophils (%) (Auto) 2.5 % Basophils (%) (Auto) 0.4 % Neutrophils # (Auto) 12.8 TH/MM3 Lymphocytes # (Auto) 1.8 TH/MM3 Monocytes # (Auto) 1.2 TH/MM3 Eosinophils # (Auto) 0.4 TH/MM3 Basophils # (Auto) 0.1 TH/MM3 CBC Comment DIFF FINAL Differential Comment Blood Urea Nitrogen 6 MG/DL Creatinine 0.69 MG/DL Random Glucose 85 MG/DL Total Protein 7.5 GM/DL Albumin 3.5 GM/DL Calcium Level 8.9 MG/DL Alkaline Phosphatase 84 U/L Aspartate Amino Transf (AST/SGOT) 26 U/L Alanine Aminotransferase (ALT/SGPT) 26 U/L Total Bilirubin 0.7 MG/DL Sodium Level 136 MEQ/L Potassium Level 3.9 MEQ/L Chloride Level 102 MEQ/L Carbon Dioxide Level 28.1 MEQ/L Anion Gap 6 MEQ/L Estimat Glomerular Filtration Rate 94 ML/MIN Lactic Acid Level 0.8 mmol/L MDM Supervised Visit with JIM: Yes Interpretation(s) Last Impressions Pelvis Ultrasound 06/12/17 0000 Signed Impressions: Service Date/Time: Monday, June 12, 2017 20:13 - CONCLUSION: Markedly thickened and heterogeneous endometrium with trace fluid. Reportedly there is recent history of uterine ablation. No adnexal mass or free fluid. Small nabothian cysts. Mohamud Bojorquez MD 21:41 PM. CBC WBC 16.2. 78 neutrophil. UA positive for RBC, 7 WBC and bacteria. Narrative Course Rocephin 1 g IV given. Diagnosis Primary Impression: Endometritis Patient Instructions: General Instructions Additional Instruction: Continue with all medications. Hydrocodone as needed for pain. Follow-up with personal physician. Return if worse. Med/Other Pt SpecificInfo: No Change to Meds Scripts Hydrocodone-Acetaminophen ([place]) 5-325 mg Tab 1 TAB PO Q6H Y for PAIN, #20 TAB 0 Refills Prov: Feliz Valerio MD 06/12/17 Disposition: 01 DISCHARGE HOME Condition: Stable Feliz Valerio MD Jun 12, 2017 21:45
--- NOTE | 2017-06-12 21:45 | PD ---
Physical Exam Narrative Patient was seen by daycare assistant and signed out to ms Data Data Last Documented VS Vital Signs Date Time Temp Pulse Resp B/P (MAP) Pulse Ox O2 Delivery O2 Flow Rate FiO2 06/12/17 19:19 98.1 75 16 141/85 (103) 98 Room Air Orders Orders Complete Blood Count With Diff (06/12/17 19:56) Comprehensive Metabolic Panel (06/12/17 19:56) Urinalysis - C+S If Indicated (06/12/17 19:56) Iv Access Insert/Monitor (06/12/17 19:56) Sodium Chlor 0.9% 1000 Ml Inj (Ns 1000 M (06/12/17 19:56) Blood Culture (06/12/17 19:56) Lactic Acid Sepsis Protocol (06/12/17 19:56) Us Pelvis Comp W Transvaginal (06/12/17 ) Ceftriaxone Inj (Rocephin Inj) (06/12/17 22:00) Labs Laboratory Tests Test 06/12/17 20:25 06/12/17 21:00 Urine Color YELLOW Urine Turbidity HAZY Urine pH 6.5 Urine Specific [place] 1.014 Urine Protein NEG mg/dL Urine Glucose (UA) NEG mg/dL Urine Ketones NEG mg/dL Urine Occult Blood LARGE Urine Nitrite NEG Urine Bilirubin NEG Urine Urobilinogen LESS THAN 2.0 MG/DL Urine Leukocyte Esterase LARGE Urine RBC 49 /hpf Urine WBC 7 /hpf Urine Squamous Epithelial Cells 1 /hpf Urine Amorphous Sediment RARE Urine Bacteria RARE /hpf Microscopic Urinalysis Comment CULT NOT INDICATED White Blood Count 16.2 TH/MM3 Red Blood Count 4.56 MIL/MM3 Hemoglobin 13.5 GM/DL Hematocrit 40.1 % Mean Corpuscular Volume 87.9 FL Mean Corpuscular Hemoglobin 29.6 PG Mean Corpuscular Hemoglobin Concent 33.6 % Red Cell Distribution Width 13.6 % Platelet Count 273 TH/MM3 Mean Platelet Volume 8.0 FL Neutrophils (%) (Auto) 78.9 % Lymphocytes (%) (Auto) 11.1 % Monocytes (%) (Auto) 7.1 % Eosinophils (%) (Auto) 2.5 % Basophils (%) (Auto) 0.4 % Neutrophils # (Auto) 12.8 TH/MM3 Lymphocytes # (Auto) 1.8 TH/MM3 Monocytes # (Auto) 1.2 TH/MM3 Eosinophils # (Auto) 0.4 TH/MM3 Basophils # (Auto) 0.1 TH/MM3 CBC Comment DIFF FINAL Differential Comment Blood Urea Nitrogen 6 MG/DL Creatinine 0.69 MG/DL Random Glucose 85 MG/DL Total Protein 7.5 GM/DL Albumin 3.5 GM/DL Calcium Level 8.9 MG/DL Alkaline Phosphatase 84 U/L Aspartate Amino Transf (AST/SGOT) 26 U/L Alanine Aminotransferase (ALT/SGPT) 26 U/L Total Bilirubin 0.7 MG/DL Sodium Level 136 MEQ/L Potassium Level 3.9 MEQ/L Chloride Level 102 MEQ/L Carbon Dioxide Level 28.1 MEQ/L Anion Gap 6 MEQ/L Estimat Glomerular Filtration Rate 94 ML/MIN Lactic Acid Level 0.8 mmol/L MDM Supervised Visit with JIM: Yes Interpretation(s) Last Impressions Pelvis Ultrasound 06/12/17 0000 Signed Impressions: Service Date/Time: Monday, June 12, 2017 20:13 - CONCLUSION: Markedly thickened and heterogeneous endometrium with trace fluid. Reportedly there is recent history of uterine ablation. No adnexal mass or free fluid. Small nabothian cysts. Mohamud Bojorquez MD 21:41 PM. CBC WBC 16.2. 78 neutrophil. UA positive for RBC, 7 WBC and bacteria. Narrative Course Rocephin 1 g IV given. Diagnosis Primary Impression: Endometritis Patient Instructions: General Instructions Additional Instruction: Continue with all medications. Hydrocodone as needed for pain. Follow-up with personal physician. Return if worse. Med/Other Pt SpecificInfo: No Change to Meds Scripts Hydrocodone-Acetaminophen ([place]) 5-325 mg Tab 1 TAB PO Q6H Y for PAIN, #20 TAB 0 Refills Prov: Feliz Valerio MD 06/12/17 Disposition: 01 DISCHARGE HOME Condition: Stable Feliz Valerio MD Jun 12, 2017 21:45
[2017-06-12] MEDS ORDERED: cefTRIAXone INJ 1,000 MG in SODIUM CHLORIDE 0.9% INJ 100 ML IV ONE (22:00)
[2017-06-12] MEDS ORDERED: NORC5TAB PO (22:01)
[2017-06-12 22:33] VITALS: BP 122/60
== END 2017-06-12 22:43 | disposition home or self-care (01) ==
LOC: NEPD 19:16
DX: N71.9 Inflammatory disease of uterus, unspecified (principal); M79.1 Myalgia; R50.9 Fever, unspecified; E03.9 Hypothyroidism, unspecified; Z98.890 Other specified postprocedural states; Z87.09 Personal history of other diseases of the respiratory system; Z86.2 Personal history of diseases of the blood and blood-forming organs and certain disorders involving the immune mechanism; Z86.59 Personal history of other mental and behavioral disorders; Z86.79 Personal history of other diseases of the circulatory system; Z87.19 Personal history of other diseases of the digestive system; Z87.39 Personal history of other diseases of the musculoskeletal system and connective tissue
CPT/HCPCS: 76830; 76856; 80053; 81001; 83605; 85025; 87040; 96361; 96374; 99285; J0696; J7030

== ENCOUNTER → 2017-07-20 | Day surgery (SDC) | payer BC ==
[~2017-07-20] MED LIST changes: +ACETAMINOPHEN 1000 MG/100 ML 100 ML IV ONE; +ACETAMINOPHEN/HYDROcodone 325 MG/5 MG TAB ONE; -ALBUAER3 INH; +BUPIVACAINE/EPINEPHRINE 0.25% 50 ML VIAL ONE; -BUSP10TA PO; -CLIN1CAP6 PO; -ERYTOIN10 RIGHT EYE; +KETOROLAC TROMETHAMINE 30 MG/ML (IVP) VIAL IV PUSH ONE; +LACTATED RINGER'S 1000 ML INJ 1,000 ML ONE; -LEVO.075 PO; +MEPERIDINE HCL 25 MG/ML VIAL ONE; +MIDAZOLAM HCL 2 MG/2 ML VIAL ONE; +MORPHINE SULFATE 4 MG/ML INJ ONE; +NORC5TAB PO; +ONDANSETRON HCL 4 MG/2 ML VIAL IV PUSH ONE; -PRED-503 PO; +PROPOFOL 200 MG/20 ML AMP IV ONE; +SODIUM CHLOR 0.9% 250 ML BAG IV ONE; +SODIUM CHLORIDE 0.9% 250 ML ADDBAG IV ONE; +VANCOMYCIN HCL 1000 MG VIAL ONE; -VENTAER INH; -ZOLO50TA PO
--- NOTE | 2017-07-20 13:54 | TN ---
cc: MOHAMUD GREEN M.D. DATE OF SURGERY July 20, 2017 PREOPERATIVE DIAGNOSES 1. Abnormality seen on breast imaging, left breast. 2. Symptomatic bilateral inguinal hernias, left greater than right POSTOPERATIVE DIAGNOSES 1. Abnormality seen on breast imaging, left breast. 2. Symptomatic bilateral inguinal hernias, left greater than right, the right side was bigger than the left PROCEDURE 1. Needle-localized excisional lumpectomy left breast, lower outer quadrant. 2. Repair of left inguinal hernia with mesh with removal of cord lipoma. 3. Repair of right inguinal hernia with mesh with removal of cord lipoma. ANESTHESIA General. SURGEON Dr. Green SLASHER OPERATOR Ms. Marci Rowell, Advance Registered Nurse Practitioner. The DIRECTOR OF AGRICULTURE was present from beginning to the end of the case assisting in all portions of the procedure. It was necessary to have this individual in the room to assist in the above surgical procedure. The surgical procedure was assisted by the DIRECTOR OF AGRICULTURE. The DIRECTOR OF AGRICULTURE presence was necessary throughout the case for appropriate retraction, dissection, visualization, and resection of the important anatomical structures during the surgical procedure. The DIRECTOR OF AGRICULTURE was assisting throughout the entirety of the operation. The skill set of the DIRECTOR OF AGRICULTURE is medically and surgically necessary to safely complete the surgical procedure. During the surgical case, the operating room poultry service technician was working instrument table and passing instruments to the attending surgeon and DIRECTOR OF AGRICULTURE. The DIRECTOR OF AGRICULTURE was directly assisting the operating surgeon and involved in the technical aspects of the surgical case. INDICATIONS This is a pleasant female who has had bilateral inguinal hernias. She also has a density in her left breast that has been followed. She is very concerned with it. Although it has been fairly benign, she is overly concerned about it And wants it to be removed so she does not have to do routine frequent follow- up imaging and mammograms to follow the density. She would like it removed to assure that it is not a malignancy. Plans were made for above. PROCEDURE The patient was taken to the operating room, placed supine on the operating room table in supine position. After general anesthesia, time-out was done. She was given preoperative antibiotics. Left breast needle localized biopsy We direct our attention to the left breast first. After prepping and draping, a curvilinear incision was made in the nipple-areolar complex. The guidewire had been previously placed in Radiology coursing from an inferior to superior direction, from lateral to medial. We are able to dissect down to the guidewire just underneath the skin where it enters in the lower outer quadrant of the left breast. We clip the guidewire at the skin and we are able to circumferentially dissect down to the guidewire and the surrounding tissue. This was sent down to Imaging where the radiologist states the area in question has been removed. We then irrigate hemostasis assured. We then close the deep layer with 3-0 Vicryl and skin is closed with a 4-0 Vicryl. Left hernia repair We then prep and drape the groins with Betadine. We first direct our attention to the left side. We make a somewhat oblique incision incorporating her low Pfannenstiel incision, dissect down through the subcutaneous tissue, Malorie's fascia, excising the external oblique aponeurosis. We visualize an indirect defect. The round ligament is almost nonexistent; it is sacrificed as well as the ilioinguinal nerve. The vessels are tied off with a Vicryl suture. We then take a piece of polypropylene mesh securing it to the pubic tubercle, Bruce's ligament, the iliopubic tract out laterally and the conjoined tendon medially, all done with 0 Ethibond. The external oblique aponeurosis was then closed with a 2-0 Vicryl, Malorie's with a 2-0 Vicryl, the skin with 4-0 Vicryl. Right hernia repair We then direct our attention to the right side. A similar incision was made incorporating the previous low Pfannenstiel incision, extending it out laterally, dissect down to subcutaneous tissue, identifying the external oblique aponeurosis and incising this to open the canal. The external oblique aponeurosis was somewhat adherent to the internal oblique. This is using electrocautery device. A moderate-sized hernia is identified. It is able to be reduced. The cord lipoma is removed as well. The round ligament is sacrificed. The ilioinguinal nerve is sacrificed as well. We dissect all the way up into the internal oblique aponeurosis. After this was done we then place a piece of polypropylene mesh securing to the pubic tubercle, Bruce's ligament, the iliopubic tract out laterally and the conjoined tendon medially so the mesh lays flat. Then close the external oblique aponeurosis with a 2-0 Vicryl, the deep layer with a 2-0 Vicryl and the skin 4-0 Vicryl. Steri-Strips applied. Sterile bandage applied. The patient tolerated the procedure well and had no immediate postop complications. Mohamud Green MD JYOEL/MARY /1:18 PM /1:28 PM MTDBrandon
== END | disposition home or self-care (01) ==
LOC: ESDC 07:30
PROVIDERS: ATTEND Surgery
DX: N60.02 Solitary cyst of left breast (principal); K40.20 Bilateral inguinal hernia, without obstruction or gangrene, not specified as recurrent
CPT/HCPCS: 00400; 00830; 19125; 49505; 88307; C1781; J0131; J1885; J2175; J2250; J2270; J2405; J3010; J3370; J7050; J7120

== ENCOUNTER 2017-11-16 11:49 | Emergency (ER) | payer BC, OTHER ==
[~2017-11-16] VITALS: Ht 157.5 cm; Wt 100.0 kg
[~2017-11-16 11:49] MED LIST changes: -ACETAMINOPHEN 1000 MG/100 ML 100 ML IV ONE; -ACETAMINOPHEN/HYDROcodone 325 MG/5 MG TAB ONE; -BUPIVACAINE/EPINEPHRINE 0.25% 50 ML VIAL ONE; -KETOROLAC TROMETHAMINE 30 MG/ML (IVP) VIAL IV PUSH ONE; -LACTATED RINGER'S 1000 ML INJ 1,000 ML ONE; -MEPERIDINE HCL 25 MG/ML VIAL ONE; -MIDAZOLAM HCL 2 MG/2 ML VIAL ONE; -MORPHINE SULFATE 4 MG/ML INJ ONE; -ONDANSETRON HCL 4 MG/2 ML VIAL IV PUSH ONE; -PROPOFOL 200 MG/20 ML AMP IV ONE; -SODIUM CHLOR 0.9% 250 ML BAG IV ONE; -SODIUM CHLORIDE 0.9% 250 ML ADDBAG IV ONE; -VANCOMYCIN HCL 1000 MG VIAL ONE
[2017-11-16 12:20] VITALS: BP 129/80; PULSE 64; RESP 15; TEMP 97.9; O2SAT 100
[2017-11-16 14:04] LABS: BILIRUBIN, URINE NEG (NEG); BLOOD, URINE TRACE (NEG); GLUCOSE,URINE NEG (NEG); KETONE, URINE NEG (NEG); NITRITE,URINE NEG (NEG); PH, URINE 7.5 (5.0-8.5); SQUAMOUS EPITHELIAL CELL URINE 9 /hpf (0-5); URINE COLOR LIGHT-YELLOW (YELLW/STRAW); URINE LEUKOCYTE ESTERASE NEG (NEG)
[2017-11-16] MEDS ORDERED: ONDANSETRON ODT 4 MG TAB PO ONE (14:45)
[2017-11-16] MEDS ORDERED: LOPERAMIDE HCL 2 MG CAP PO ONE (14:45)
--- NOTE | 2017-11-16 14:54 | PD ---
HPI Chief Complaint: General Weakness Time Seen by Provider: 14:27 Travel History International Travel<30 days: No Contact w/Intl Traveler<30days: No Traveled to known affect area: No History of Present Illness HPI Is a 41-year-old woman presents emerged from complaining that she has been feeling tired rundown lethargic. She has had loose stools overnight and felt dizzy and lightheaded this morning. She feels better after she ate this morning. She has had nausea but no vomiting. States she just started working out more recently. No real change in her diet. No stimulants or supplement uses. History Past Medical History Narrative Medical Lupus, no meds Hypothyroidism LMP: 2017 - ABLATION : 2 Para: 2 Social History Alcohol Use: Yes (Socially) Tobacco Use: No Allergies-Medications (Allergen,Severity, Reaction): Coded Allergies: penicillin G (Verified Allergy, Severe, RASH, 11/16/17) Reported Meds & Prescriptions Reported Meds & Active Scripts Active [place] (Hydrocodone-Acetaminophen) 5-325 mg Tab 1 Tab PO Q6H PRN Flagyl (Metronidazole) 500 Mg Tab 500 Mg PO TID 10 Days Zofran (Ondansetron HCl) 8 Mg Tab 8 Mg PO TID Doxycycline Hyclate 100 Mg Cap 100 Mg PO BID Reported Levothyroxine (Levothyroxine Sodium) 88 Mcg Tab 100 Mcg PO DAILY Sertraline (Sertraline HCl) 50 Mg Tab 75 Mg PO DAILY Review of Systems Except as stated in HPI: all other systems reviewed are Neg Physical Exam Narrative GENERAL: Well-appearing 41-year-old woman, no acute distress. SKIN: Focused skin assessment warm/dry. HEAD: Atraumatic. Normocephalic. EYES: Pupils equal and round. No scleral icterus. No injection or drainage. ENT: No nasal bleeding or discharge. Mucous membranes pink and moist. NECK: Trachea midline. No JVD. CARDIOVASCULAR: Regular rate and rhythm. No murmur appreciated. RESPIRATORY: No accessory muscle use. Clear to auscultation. Breath sounds equal bilaterally. GASTROINTESTINAL: Abdomen soft, non-tender, nondistended. Hepatic and splenic margins not palpable. MUSCULOSKELETAL: No obvious deformities. No clubbing. No cyanosis. No edema. NEUROLOGICAL: Awake and alert. No obvious cranial nerve deficits. Motor grossly within normal limits. Normal speech. PSYCHIATRIC: Appropriate mood and affect; insight and judgment normal. Data Data Last Documented VS Vital Signs Date Time Temp Pulse Resp B/P (MAP) Pulse Ox O2 Delivery O2 Flow Rate FiO2 11/16/17 12:20 97.9 64 15 129/80 (96) 100 Orders Orders Urinalysis - C+S If Indicated (11/16/17 12:24) Complete Blood Count With Diff (11/16/17 12:24) Basic Metabolic Panel (Bmp) (11/16/17 12:24) Ed Urine Pregnancytest Poc (11/16/17 12:24) Ondansetron Odt (Zofran Odt) (11/16/17 14:45) Loperamide (Imodium) (11/16/17 14:45) Oral Rehydration (11/16/17 14:35) Labs Laboratory Tests Test 11/16/17 12:47 11/16/17 13:51 Urine Color LIGHT-YELLOW Urine Turbidity CLEAR Urine pH 7.5 Urine Specific [place] 1.003 Urine Protein NEG mg/dL Urine Glucose (UA) NEG mg/dL Urine Ketones NEG mg/dL Urine Occult Blood TRACE Urine Nitrite NEG Urine Bilirubin NEG Urine Urobilinogen LESS THAN 2.0 MG/DL Urine Leukocyte Esterase NEG Urine RBC 1 /hpf Urine WBC LESS THAN 1 /hpf Urine Squamous Epithelial Cells 9 /hpf Microscopic Urinalysis Comment CULT NOT INDICATED MDM Medical Decision Making Medical Screen Exam Complete: Yes Emergency Medical Condition: Yes Interpretation(s) UA negative Differential Diagnosis Dehydration, anemia, renal disease, other Narrative Course Well 41-year-old woman who felt tired rundown lightheadedness setting of increased workout routine and diarrhea. Looks well now. Feeling better after eating. Labs were sent from but are still pending. She is able to tolerate oral rehydration. We will follow-up on results of her labs, but go ahead and allow her to be discharged. Plan Zofran loperamide if needed. Diagnosis Primary Impression: Dehydration Additional Impression: Diarrhea Additional Instructions: Drink plenty fluids stay well-hydrated. Follow with her primary doctor in 2-4 days if not feeling improved. Return to the emergency department for any new or worsening symptoms. Med/Other Pt SpecificInfo: No Change to Meds Disposition: 01 DISCHARGE HOME Condition: Stable Umair Zaavla MD Nov 16, 2017 14:54
[2017-11-16 15:01] LABS: AUTOMATED NEUTROPHIL # 5.5 TH/MM3 (1.8-7.7); BASOPHIL # 0.1 TH/MM3 (0-0.2); BASOPHIL % 0.9 % (0.0-2.0); EOSINOPHIL # 0.4 TH/MM3 (0-0.4); EOSINOPHIL % 4.2 % (0.0-4.0); HEMATOCRIT 41.5 % (35.0-46.0); HEMOGLOBIN 14.1 GM/DL (11.6-15.3); LYMPH % 26.3 % (9.0-44.0); LYMPHOCYTE # 2.3 TH/MM3 (1.0-4.8); MEAN CELL VOLUME 88.2 FL (80.0-100.0); MEAN CORPUSCULAR HEMOGLOBIN 29.9 PG (27.0-34.0); MEAN CORPUSCULAR HGB CONC 33.9 % (32.0-36.0); MEAN PLATELET VOLUME 8.5 FL (7.0-11.0); MONO % 6.9 % (0.0-8.0); MONOCYTE # 0.6 TH/MM3 (0-0.9); NEUT % 61.7 % (16.0-70.0); PLATELET COUNT 298 TH/MM3 (150-450); RED BLOOD COUNT 4.71 MIL/MM3 (4.00-5.30); RED CELL DISTRIBUTION WIDTH 13.7 % (11.6-17.2); WHITE BLOOD COUNT 8.9 TH/MM3 (4.0-11.0)
[2017-11-16 15:21] LABS: BICARBONATE 27.4 MEQ/L (21.0-32.0); CALCIUM 8.5 MG/DL (8.5-10.1); CREATININE 0.78 MG/DL (0.50-1.00)
== END 2017-11-16 15:08 | disposition home or self-care (01) ==
LOC: NEPD 11:49
DX: E86.0 Dehydration (principal); R19.7 Diarrhea, unspecified; E03.9 Hypothyroidism, unspecified
CPT/HCPCS: 80048; 81001; 85025; 99283

== ENCOUNTER 2017-12-02 15:33 | Emergency (ER) | payer OTHER ==
[~2017-12-02] VITALS: Ht 157.5 cm; Wt 90.5 kg
[2017-12-02] MEDS ORDERED: IOHEXOL 350 MG/ML 10 ML VIAL (for RAD DIAG) IVCONTRAST ONE (15:34)
[2017-12-02 15:45] VITALS: BP 157/78; PULSE 67; RESP 18; TEMP 98; O2SAT 99
[2017-12-02 19:46] VITALS: BP 150/84; PULSE 67; RESP 16; O2SAT 99
[2017-12-02] MEDS ORDERED: ZOLO25TA PO (19:49)
[2017-12-02] MEDS ORDERED: SODIUM CHLOR 0.9% 1000 ML INJ 1,000 ML IV ONE (20:00)
[2017-12-02] MEDS ORDERED: ONDANSETRON HCL 4 MG/2 ML VIAL IVP ONE (20:00)
[2017-12-02] MEDS ORDERED: SODIUM CHLORIDE 0.9% FLUSH 10 ML FLUSH IVF PRN (20:00)
--- NOTE | 2017-12-02 20:16 | PD ---
HPI Chief Complaint: Dizziness Time Seen by Provider: 19:39 Travel History International Travel<30 days: No Contact w/Intl Traveler<30days: No Traveled to known affect area: No History of Present Illness HPI 41-year-old female complains of lightheadedness for 2 days. No loss of consciousness. She complains of intermittent left-sided chest pain severe lasting 5-10 seconds. Dyspnea accompanies the episodes. She denies history of PE. She denies any new or different medications. She denies alcohol tobacco use. Nausea is reported. Diarrhea is reported. No vomiting. No genitourinary symptoms. Patient reports she has been stable/normal state of health over the past week or so. PFSH Past Medical History Asthma: Yes Autoimmune Disease: Yes (LUPUS) Anxiety: Yes Depression: Yes Heart Rhythm Problems: No Cancer: No Cardiac Catheterization: No Cardiovascular Problems: Yes (HEART MURMUR) High Cholesterol: No Congestive Heart Failure: No Diabetes: No Diminished Hearing: No Endocrine: Yes Gastrointestinal Disorders: No GERD: Yes Genitourinary: No Hepatitis: No Hiatal Hernia: No Heparin Induced Thrombocytopen: No Hypertension: No Immune Disorder: Yes (LUPUS) Medical other: Yes (DIVERTICULOSIS) Musculoskeletal: Yes (HX OF COSTOCHONDRITIS) Neurologic: No Psychiatric: Yes (ANXIETY AND PANIC ATTACKS. NO MEDS USED) Reproductive: No Respiratory: Yes Immunizations Current: Yes Thyroid Disease: Yes (HYPOTHYROID) ?: Unknown LMP: MAY 2018 : 2 Para: 2 Past Surgical History Abdominal Surgery: Yes Body Medical Devices: N/A Cardiac Surgery: No Section: Yes (X2) Coronary Artery Bypass Graft: No Ear Surgery: No Endocrine Surgery: No Eye Surgery: No Genitourinary Surgery: No Gynecologic Surgery: Yes (UTERINE ABLATION) Joint Replacement: No Neurologic Surgery: No Oral Surgery: Yes (CROWNS) Pacemaker: No Thoracic Surgery: No Other Surgery: Yes Social History Alcohol Use: Yes (Socially) Tobacco Use: No Substance Use: Yes (MARIJUANA ON OCCAS) Allergies-Medications (Allergen,Severity, Reaction): Coded Allergies: penicillin G (Verified Allergy, Severe, RASH, 11/16/17) Reported Meds & Prescriptions Reported Meds & Active Scripts Active Reported Zoloft (Sertraline HCl) 25 Mg Tab 25 Mg PO DAILY Levothyroxine (Levothyroxine Sodium) 88 Mcg Tab 100 Mcg PO DAILY Review of Systems Except as stated in HPI: all other systems reviewed are Neg General / Constitutional: No: Fever, Chills Eyes: No: Photophobia Physical Exam Narrative GENERAL: 41 yo F, WNWD Vital Signs Date Time Temp Pulse Resp B/P (MAP) Pulse Ox O2 Delivery O2 Flow Rate FiO2 12/02/17 19:46 67 16 150/84 (106) 99 Room Air 12/02/17 15:45 98.0 67 18 157/78 (104) 99 SKIN: Warm and dry. HEAD: Atraumatic. Normocephalic. EYES: Pupils equal and round. No scleral icterus. No injection or drainage. ENT: No nasal bleeding or discharge. Mucous membranes pink and moist. NECK: Trachea midline. No JVD. CARDIOVASCULAR: Regular rate and rhythm. RESPIRATORY: No accessory muscle use. Clear to auscultation. Breath sounds equal bilaterally. GASTROINTESTINAL: Abdomen soft, non-tender, nondistended. Hepatic and splenic margins not palpable. MUSCULOSKELETAL: Extremities without clubbing, cyanosis, or edema. No obvious deformities. NEUROLOGICAL: Awake and alert. No obvious cranial nerve deficits. Motor grossly within normal limits. Five out of 5 muscle strength in the arms and legs. Normal speech. PSYCHIATRIC: Appropriate mood and affect; insight and judgment normal. Data Data Last Documented VS Vital Signs Date Time Temp Pulse Resp B/P (MAP) Pulse Ox O2 Delivery O2 Flow Rate FiO2 12/02/17 20:30 59 18 99 Room Air 12/02/17 15:45 98.0 Orders Orders Electrocardiogram (12/02/17 ) Ed Urine Pregnancytest Poc (12/02/17 20:00) Complete Blood Count With Diff (12/02/17 20:00) Comprehensive Metabolic Panel (12/02/17 20:00) Magnesium (Mg) (12/02/17 20:00) Ckmb (Isoenzyme) Profile (12/02/17 20:00) Troponin I (12/02/17 20:00) Urinalysis - C+S If Indicated (12/02/17 20:00) Chest, Single Ap (12/02/17 20:00) Ecg Monitoring (12/02/17 20:00) Iv Access Insert/Monitor (12/02/17 20:00) Oximetry (12/02/17 20:00) Ondansetron Inj (Zofran Inj) (12/02/17 20:00) Sodium Chloride 0.9% Flush (Ns Flush) (12/02/17 20:00) Sodium Chlor 0.9% 1000 Ml Inj (Ns 1000 M (12/02/17 20:00) Ct Pulmonary Angiogram (12/02/17 20:16) Iohexol 350 Inj (Omnipaque 350 Inj) (12/02/17 15:34) CKMB (12/02/17 20:04) CKMB% (12/02/17 20:04) Urine Culture (12/02/17 20:53) Labs Laboratory Tests Test 12/02/17 20:04 12/02/17 20:53 White Blood Count 11.4 TH/MM3 Red Blood Count 4.77 MIL/MM3 Hemoglobin 14.1 GM/DL Hematocrit 41.7 % Mean Corpuscular Volume 87.4 FL Mean Corpuscular Hemoglobin 29.6 PG Mean Corpuscular Hemoglobin Concent 33.9 % Red Cell Distribution Width 13.3 % Platelet Count 315 TH/MM3 Mean Platelet Volume 8.5 FL Neutrophils (%) (Auto) 66.2 % Lymphocytes (%) (Auto) 21.8 % Monocytes (%) (Auto) 6.2 % Eosinophils (%) (Auto) 4.7 % Basophils (%) (Auto) 1.1 % Neutrophils # (Auto) 7.6 TH/MM3 Lymphocytes # (Auto) 2.5 TH/MM3 Monocytes # (Auto) 0.7 TH/MM3 Eosinophils # (Auto) 0.5 TH/MM3 Basophils # (Auto) 0.1 TH/MM3 CBC Comment DIFF FINAL Differential Comment Blood Urea Nitrogen 13 MG/DL Creatinine 0.86 MG/DL Random Glucose 76 MG/DL Total Protein 8.0 GM/DL Albumin 3.9 GM/DL Calcium Level 8.7 MG/DL Magnesium Level 2.0 MG/DL Alkaline Phosphatase 107 U/L Aspartate Amino Transf (AST/SGOT) 45 U/L Alanine Aminotransferase (ALT/SGPT) 32 U/L Total Bilirubin 0.3 MG/DL Sodium Level 139 MEQ/L Potassium Level 4.2 MEQ/L Chloride Level 105 MEQ/L Carbon Dioxide Level 28.8 MEQ/L Anion Gap 5 MEQ/L Estimat Glomerular Filtration Rate 73 ML/MIN Total Creatine Kinase 126 U/L Creatine Kinase MB 1.1 NG/ML Troponin I LESS THAN 0.02 NG/ML Urine Color YELLOW Urine Turbidity CLEAR Urine pH 6.5 Urine Specific [place] 1.012 Urine Protein NEG mg/dL Urine Glucose (UA) NEG mg/dL Urine Ketones NEG mg/dL Urine Occult Blood MOD Urine Nitrite NEG Urine Bilirubin NEG Urine Urobilinogen LESS THAN 2.0 MG/DL Urine Leukocyte Esterase NEG Urine RBC 6 /hpf Urine WBC LESS THAN 1 /hpf Urine Squamous Epithelial Cells 4 /hpf Urine Bacteria MOD /hpf Microscopic Urinalysis Comment CULTURE INDICATED MDM Medical Decision Making Medical Screen Exam Complete: Yes Emergency Medical Condition: Yes Medical Record Reviewed: Yes Differential Diagnosis Electrolyte imbalance, anemia, PE, DVT, arrhythmia, thyroid disease, anxiety Narrative Course EKG shows sinus rhythm rate 64 normal axis and intervals nonspecific ST changes CBC & BMP Diagram 12/02/17 20:04 Total Protein 8.0, Albumin 3.9, Calcium Level 8.7, Magnesium Level 2.0, Alkaline Phosphatase 107, Aspartate Amino Transf (AST/SGOT) 45 H, Alanine Aminotransferase (ALT/SGPT) 32, Total Bilirubin 0.3 Troponin is undetectable Last Impressions CT Angiography 12/02/172015 Signed Impressions: Service Date/Time: Saturday, December 02, 2017 20:36 - CONCLUSION: Normal examination. Mohamud Bojorquez MD Chest X-Ray 12/02/171999 Signed Impressions: Service Date/Time: Saturday, December 02, 2017 20:22 - CONCLUSION: No acute disease. Mohamud Bojorquez MD The patient is resting comfortably and feels better, is alert and in no distress. The patients results and examination findings were discussed. The repeat examination is unremarkable and benign. The history, exam, diagnostic testing, and current condition do not suggest any significant pathology to warrant further testing, continued ED treatment, admission, or surgical evaluation at this point. The vital signs have been stable. The patient does not have uncontrollable pain, intractable vomiting, or other significant symptoms. The patient's condition is stable and appropriate for discharge. The patient will pursue further outpatient evaluation with a primary care physician or other designated or consulting physician as indicated in the discharge instructions. The patient expressed understanding and was agreeable with this plan. Diagnosis Primary Impression: Exhaustion Additional Impressions: Chest pain Dyspnea Headache Difficulty concentrating Lightheadedness Referrals: Kadie Otoole MD call for appointment Med/Other Pt SpecificInfo: No Change to Meds Disposition: 01 DISCHARGE HOME Condition: Stable Esau Montejo MD Dec 02, 2017 20:16
[2017-12-02 20:30] VITALS: PULSE 59; RESP 18; O2SAT 99
[2017-12-02 20:47] LABS: AUTOMATED NEUTROPHIL # 7.6 TH/MM3 (1.8-7.7); BASOPHIL # 0.1 TH/MM3 (0-0.2); BASOPHIL % 1.1 % (0.0-2.0); EOSINOPHIL # 0.5 TH/MM3 (0-0.4); EOSINOPHIL % 4.7 % (0.0-4.0); HEMATOCRIT 41.7 % (35.0-46.0); HEMOGLOBIN 14.1 GM/DL (11.6-15.3); LYMPH % 21.8 % (9.0-44.0); LYMPHOCYTE # 2.5 TH/MM3 (1.0-4.8); MEAN CELL VOLUME 87.4 FL (80.0-100.0); MEAN CORPUSCULAR HEMOGLOBIN 29.6 PG (27.0-34.0); MEAN CORPUSCULAR HGB CONC 33.9 % (32.0-36.0); MEAN PLATELET VOLUME 8.5 FL (7.0-11.0); MONO % 6.2 % (0.0-8.0); MONOCYTE # 0.7 TH/MM3 (0-0.9); NEUT % 66.2 % (16.0-70.0); PLATELET COUNT 315 TH/MM3 (150-450); RED BLOOD COUNT 4.77 MIL/MM3 (4.00-5.30); RED CELL DISTRIBUTION WIDTH 13.3 % (11.6-17.2); WHITE BLOOD COUNT 11.4 TH/MM3 (4.0-11.0)
--- NOTE | 2017-12-02 20:57 | RADRPT ---
EXAM DATE/TIME: 12/02/2017 20:22 [facility] COMPARISON: No previous studies available for comparison. INDICATIONS : Chest pain and shortness of breath. MEDICAL HISTORY : Emphysema. Asthma. SURGICAL HISTORY : Left lumpectomy. ENCOUNTER: Initial ACUITY: 1 day PAIN SCORE: 5/10 LOCATION: Bilateral chest FINDINGS: A single view of the chest demonstrates the lungs to be symmetrically aerated without evidence of mas s, infiltrate or effusion. The cardiomediastinal contours are unremarkable. Osseous structures are intact. CONCLUSION: No acute disease. Mohamud Bojorquez MD on December 02, 2017 at 20:55 Board Certified Radiologist. This report was verified electronically.
--- NOTE | 2017-12-02 21:01 | RADRPT ---
EXAM DATE/TIME: 12/02/2017 20:36 [facility] COMPARISON: No previous studies available for comparison. INDICATIONS : Left sided chest pain. IV CONTRAST: 74 cc Omnipaque 350 (iohexol) IV RADIATION DOSE: 10.74 CTDIvol (mGy) MEDICAL HISTORY : Cardiovascular disease. Gastroesophageal reflux disease. Lupus. SURGICAL HISTORY : None. ENCOUNTER: Initial ACUITY: 1 day PAIN SCALE: 7/10 LOCATION: Left chest TECHNIQUE: Volumetric scanning of the chest was performed using a pulmonary embolism protocol MIP images were re constructed. Using automated exposure control and adjustment of the mA and/or kV according to patien t size, radiation dose was kept as low as reasonably achievable to obtain optimal diagnostic quality images. DICOM format image data is available electronically for review and comparison. Follow-up recommendations for detected pulmonary nodules are based at a minimum on nodule size and pa tient risk factors according to Fleischner Society Guidelines. FINDINGS: PULMONARY ARTERIES: No filling defects are seen in the pulmonary arteries through the segmental level. LUNGS: There is no consolidation or pneumothorax . No concerning pulmonary nodule is visualized. PLEURAE: There is no pleural thickening or pleural effusion. MEDIASTINUM: There is good visualization of the great vessels of the middle mediastinum. No evidence of mediastin al or hilar adenopathy/mass. MUSCULOSKELETAL: Within normal limits for patient age. MISCELLANEOUS: The visualized upper abdominal organs demonstrate no acute abnormality. CONCLUSION: Normal examination. Mohamud Bjoorquez MD on December 02, 2017 at 20:56 Board Certified Radiologist. This report was verified electronically.
[2017-12-02 21:15] LABS: ALBUMIN 3.9 GM/DL (3.4-5.0); AST (GOT) 45 U/L (15-37); BICARBONATE 28.8 MEQ/L (21.0-32.0); BLOOD UREA NITROGEN 13 MG/DL (7-18); CALCIUM 8.7 MG/DL (8.5-10.1); CHLORIDE 105 MEQ/L (98-107); CREATININE 0.86 MG/DL (0.50-1.00); GLOMERULAR FILTRATION RATE 73 ML/MIN (>89); GLUCOSE,RANDOM 76 MG/DL (74-106); SODIUM (NA) 139 MEQ/L (136-145)
[2017-12-02 21:21] LABS: ALKALINE PHOSPHATASE 107 U/L (45-117); ALT (GPT) 32 U/L (10-53); TOTAL BILIRUBIN ADULT 0.3 MG/DL (0.2-1.0); TROPONIN I LESS THAN 0.02 NG/ML (0.02-0.05)
[2017-12-02 21:23] LABS: BACTERIA, URINE MOD /hpf; BILIRUBIN, URINE NEG (NEG); BLOOD, URINE MOD (NEG); GLUCOSE,URINE NEG (NEG); KETONE, URINE NEG (NEG); NITRITE,URINE NEG (NEG); PH, URINE 6.5 (5.0-8.5); SQUAMOUS EPITHELIAL CELL URINE 4 /hpf (0-5); URINE COLOR YELLOW (YELLW/STRAW); URINE LEUKOCYTE ESTERASE NEG (NEG)
--- NOTE | 2017-12-03 16:43 | EKG ---
Date Performed: 12/02/2017 Time Performed: 16:06:57 PTAGE: 41 years EKG: Sinus rhythm POSSIBLE LEFT ATRIAL ENLARGEMENT BORDERLINE LEFT AXIS DEVIATION Since the PREVIOUS TRACING , no significant change noted BORDERLINE ECG PREVIOUS TRACING 5 @ 11.31.28 DOCTOR: Bonita Joseph Interpretating Date/Time 12/03/2017 16:42:41
== END 2017-12-02 22:20 | disposition home or self-care (01) ==
LOC: NEPC 15:33
DX: R53.83 Other fatigue (principal); R07.9 Chest pain, unspecified; R06.00 Dyspnea, unspecified; R51 Headache; R42 Dizziness and giddiness; R94.31 Abnormal electrocardiogram [ECG] [EKG]; J45.909 Unspecified asthma, uncomplicated; F32.9 Major depressive disorder, single episode, unspecified; M32.9 Systemic lupus erythematosus, unspecified; E03.9 Hypothyroidism, unspecified; F41.0 Panic disorder [episodic paroxysmal anxiety]; K21.9 Gastro-esophageal reflux disease without esophagitis
CPT/HCPCS: 71045; 71275; 80053; 81001; 82550; 82552; 83735; 84484; 84703; 85025; 87086; 93005; 96361; 96374; 99285; J2405; J7030; Q9967